=== PATIENT | female | born 1970 ===

== ENCOUNTER 2024-07-13 21:58 | Emergency (ER) | payer MEDICARE, MEDICAID ==
[2024-07-13 22:29] LABS: BASOPHILS ABSOLUTE AUTO 0.04 K/uL (0.00-0.10); BASOPHILS PERCENT AUTO 0.4 % (0.1-1.3); EOSINOPHILS ABSOLUTE AUTO 0.39 K/uL (0.00-0.40); EOSINOPHILS PERCENT AUTO 3.7 % (0.0-5.4); HEMOGLOBIN 12.3 g/dL (11.2-15.5); IMMATURE GRAN ABSOLUTE AUTO 0.03 K/uL (0.00-0.23); IMMATURE GRAN PERCENT AUTO 0.3 % (0.0-0.7); LYMPHOCYTES ABSOLUTE AUTO 1.56 K/uL (0.8-3.3); LYMPHOCYTES PERCENT AUTO 14.9 % (11.4-47.7); MEAN CORPUSCULAR HGB CONC 32.4 g/dL (31.6-35.5); MEAN CORPUSCULAR VOLUME 86.4 fL (81.4-99.0); MONOCYTES ABSOLUTE AUTO 0.95 K/uL (0.20-0.90); MONOCYTES PERCENT AUTO 9.1 % (3.3-12.6); NEUTROPHILS ABSOLUTE AUTO 7.48 K/uL (1.0-7.6); NEUTROPHILS PERCENT AUTO 71.6 % (40.0-78.1); PLATELET COUNT,PLT 272 K/uL (130-375); WHITE BLOOD CELL COUNT,WBC 10.5 K/uL (3.2-11.0)
[2024-07-13 22:50] LABS: A/G RATIO 0.9 (1.2-2.2); ALANINE AMINOTRANSFERASE,ALT 29 U/L (12-78); ALBUMIN 3.3 g/dL (3.4-5.0); ALKALINE PHOSPHATASE 137 U/L (46-116); ASPARTATE AMNIOTRANSFERASE,AST 23 U/L (15-37); BILIRUBIN TOTAL 0.3 mg/dL (0.2-1.0); BLOOD UREA NITROGEN,BUN 54 mg/dL (7-18); C-REACTIVE PROTEIN 3.33 mg/dL (<0.50); CALCIUM 9.1 mg/dL (8.5-10.1); CARBON DIOXIDE,CO2 25 mmol/L (21-32); CHLORIDE,CL 99 mmol/L (100-108); CREATININE 2.6 mg/dL (0.6-1.0); EST CRCL DRUG DOSING (CG) 19.79 mL/min; ESTIMATED GFR 21 mL/min (>60); GLUCOSE RANDOM 135 mg/dL (74-106); POTASSIUM,K 3.5 mmol/L (3.6-5.2); PROTEIN TOTAL,TP 7.1 g/dL (6.4-8.2); SODIUM,NA 136 mmol/L (140-148)
[2024-07-13 22:52] LABS: ANION GAP 15.5 mmol/L (5.0-14.0)
[2024-07-13 22:57] LABS: LACTIC ACID 0.7 mmol/L (0.4-2.0)
[2024-07-14] MEDS: Prochlorperazine 10 MG/2 ML SDV IVPUSH ONE (00:11)
[2024-07-14] MEDS: Sodium Chloride 0.9% 1,000 ML IV SCH ×2 (00:11→03:10)
[2024-07-14 02:56] LABS: AMORPHOUS SEDIMENT,URINE NOT SEEN; APPEARANCE,URINE CLOUDY (CLEAR); BACTERIA,URINE FEW; BILIRUBIN,URINE NEGATIVE (NEGATIVE); COLOR,URINE YELLOW (YELLOW); EPITHELIAL CELLS,URINE RARE; GLUCOSE,URINE 100 mg/dL (NEGATIVE); KETONES,URINE NEGATIVE (NEGATIVE); LEUKOCYTE ESTERASE,URINE SMALL (NEGATIVE); MUCUS,URINE NOT SEEN; NITRITE,URINE NEGATIVE (NEGATIVE); OCCULT BLOOD,URINE TRACE-INTACT (NEGATIVE); PROTEIN,URINE 30 mg/dL (NEGATIVE); RBC,URINE 0-5 (0-5); UROBILINOGEN,URINE 0.2 EU/dL (0.2-1.0); WBC,URINE SEMI-PACKED (0-5)
[2024-07-14] MEDS: Sodium Chloride 0.9% 500 ML IV ONE (04:01)
[2024-07-14 04:49] LABS: CORONAVIRUS COVID-19 NAA NEGATIVE (NEGATIVE); INFLUENZA A NAA NEGATIVE (NEGATIVE); INFLUENZA B NAA NEGATIVE (NEGATIVE); RESPIRATORY SYNCYTIAL VIR NAA NEGATIVE (NEGATIVE)
[2024-07-14] MEDS: cefTRIAXone 2 GM in Sodium Chloride 0.9% 50 ML IV ONE (05:03)
[2024-07-14] MEDS: metroNIDAZOLE/Normal Saline 500 MG in Premix Bag 1 BAG IV ONE (05:04)
[2024-07-14] MEDS: VANCOmycin 1.25 GM in Sodium Chloride 0.9% 250 ML IV ONE (05:36)
== END 2024-07-14 06:00 | disposition other institution (70) ==
LOC: JP.ED 21:58
DX: A41.9 Sepsis, unspecified organism (principal); R65.20 Severe sepsis without septic shock; N17.9 Acute kidney failure, unspecified; I11.0 Hypertensive heart disease with heart failure; I50.20 Unspecified systolic (congestive) heart failure; E78.00 Pure hypercholesterolemia, unspecified; Z87.891 Personal history of nicotine dependence; Z79.899 Other long term (current) drug therapy; Z88.8 Allergy status to other drugs, medicaments and biological substances; Z91.018 Allergy to other foods; Z88.5 Allergy status to narcotic agent; Z88.0 Allergy status to penicillin; Z88.1 Allergy status to other antibiotic agents; Z88.6 Allergy status to analgesic agent; Z79.51 Long term (current) use of inhaled steroids; Z79.52 Long term (current) use of systemic steroids
CPT/HCPCS: 0241U; 36415; 71045; 74176; 80053; 81001; 83605; 83690; 83735; 83880; 84484; 85025; 85379; 86140; 87040; 87493; 93005; 93010; 96361; 96365; 96367; 96368; 96375; 99285; J0696; J0780; J1836; J3371; J3490; J7030; J7040; J7050